=== PATIENT | male | born 1980 | race Caucasian/White ===

== ENCOUNTER 2018-10-23 15:30 | Inpatient (IN) | payer OTHER ==
[~2018-10-23] VITALS: Ht 182.9 cm; Wt 77.1 kg
== END 2018-10-25 11:47 | disposition home or self-care (01) | DRG 390 ==
LOC: ER 15:30 → SURH 10-24 14:21
PROVIDERS: ADMIT Colon & Rectal Surgery
DX: K56.690 Other partial intestinal obstruction (principal); K59.09 Other constipation; K40.90 Unilateral inguinal hernia, without obstruction or gangrene, not specified as recurrent; K42.9 Umbilical hernia without obstruction or gangrene; K64.8 Other hemorrhoids

== ENCOUNTER 2018-11-28 08:00 | Day surgery (SDC) | payer OTHER | END 2018-11-28 13:55 | disposition home or self-care (01) | LOC: AMB-ENDOS 08:00 | DX: D12.8 Benign neoplasm of rectum (principal); K64.8 Other hemorrhoids; Z12.11 Encounter for screening for malignant neoplasm of colon ==